=== PATIENT | male | born 1990 | race Two or more races ===

== ENCOUNTER 2021-11-01 15:32 | Emergency (ER) | payer BC ==
[~2021-11-01] VITALS: Ht 165.1 cm; Wt 79.4 kg
--- NOTE | 2021-11-01 15:57 | NUR ---
[email or web address], medical screening exam in progress
[2021-11-01] MEDS ORDERED: HYDROCODONE/APAP 5-325MG TABLET ONE (16:11)
[2021-11-01] MEDS ORDERED: HYDROCODONE/APAP 5-325MG TABLET PO ONE (16:15)
[2021-11-01] MEDS ORDERED: IBUP-1955 PO (17:39)
[2021-11-01] MEDS ORDERED: HYDR-4209 PO (17:39)
--- NOTE | 2021-11-01 17:48 | NUR ---
Patient discharged to home in stable condition with steady gait. Written and verbal after care instructions given to patient and girlfriend. Patient and girlfriend verbalized understanding and compliance of instructions. Stressed follow up with primary doctor or return to ER for worsening s/s.
== END 2021-11-01 17:49 | disposition home or self-care (01) ==
LOC: ER 15:36
DX: S16.1XXA Strain of muscle, fascia and tendon at neck level, initial encounter (principal); S49.91XA Unspecified injury of right shoulder and upper arm, initial encounter; S20.211A Contusion of right front wall of thorax, initial encounter; V49.9XXA Car occupant (driver) (passenger) injured in unspecified traffic accident, initial encounter; Y92.410 Unspecified street and highway as the place of occurrence of the external cause; J98.11 Atelectasis
CPT/HCPCS: 71101; 73030; A4663